=== PATIENT | female | born 1990 | race Caucasian/White ===

== ENCOUNTER 2021-06-17 15:56 | Emergency (ER) | payer MEDICAID, SELFPAY ==
[2021-06-17 16:07] VITALS: PULSE 100; RESP 20; TEMP 37.4; O2SAT 99; BMI 30.1
--- NOTE | 2021-06-17 16:17 | ECG_ITS ---
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 Measurements Intervals [place] Rate: 82 P: 51 [place]: 176 QRS: 81 QRSD: 93 T: 30 QT: 361 QTc: 424 Interpretive Statements SINUS RHYTHM Compared to ECG 06/17/2021 16:17:17 Sinus tachycardia no longer present Electronically Signed On 06-18-2021 17:00:34 CDT by Arun Skinner M.D. [id number]
--- NOTE | 2021-06-17 16:17 | XRR_ITS ---
PROCEDURE INFORMATION: Exam: XR Chest Exam date and time: 06/17/2021 4:18 PM Age: 31 years old Clinical indication: Pain; Angina pectoris; Additional info: Chest pain constant 4 TECHNIQUE: Imaging protocol: XR of the chest. Views: 2 views. COMPARISON: No relevant prior studies available. FINDINGS: Lungs: Unremarkable. No consolidation. Pleural spaces: Unremarkable. No pleural effusion. No pneumothorax. Heart/Mediastinum: Unremarkable. No cardiomegaly. Bones/joints: Unremarkable. XR/XR chest 2V* 36091 IMPRESSION: No acute findings.
[2021-06-17 17:42] VITALS: BP 198/104; PULSE 92; RESP 24; O2SAT 94
[2021-06-17 17:42] LABS: Basophils # 0.1 10^3/uL (0.0-0.1); Basophils % 0.6 %; Eosinophils # 0.1 10^3/uL (0.0-0.8); Eosinophils % 1.2 %; Hematocrit 45.2 % (37.0-47.0); Hemoglobin 13.9 g/dL (11.5-15.3); Lymphocytes # 1.8 10^3/uL (0.8-4.8); Lymphocytes % 17.5 %; Mean Corpuscular HGB Conc 30.8 g/dL (30.0-36.0); Mean Corpuscular Hemoglobin 25.9 pg (28.0-34.0); Mean Corpuscular Volume 84.2 fl (81-99); Mean Platelet Volume 10.3 fL (7.4-10.4); Monocytes # 0.6 10^3/uL (0.2-0.9); Monocytes % 5.6 %; Neutrophils # 7.56 10^3/uL (1.8-7.7); Neutrophils % 74.8 %; Nucleated Red Blood Cells % 0 %; Platelet Count 297 10^3/cmm (130-400); Red Blood Count 5.37 10^6/uL (4.1-5.3); Red Cell Distribution Width 15.4 % (12.1-15.1); White Blood Count 10.1 10^3/uL (4.0-10.0)
[2021-06-17 18:01] LABS: Blood Urea Nitrogen 9 mg/dL (6-20); Calcium 9.6 mg/dL (8.5-10.5); Carbon Dioxide 24 mmol/L (22-29); Chloride 102 mmol/L (98-107); Glomerular Filtration Rate 115.1 mL/min (90-130); Glucose 101 mg/dL (65-115); Osmolality Calculated 285 mOsm/kg (285-295); Sodium 138 mmol/L (136-145)
[2021-06-17 18:02] LABS: Troponin(5th) Baseline 6 ng/L (0-10)
--- NOTE | 2021-06-17 18:06 | ED_ITS ---
HPI - Chest Pain General: Chief Complaint: Chest Pain Stated Complaint: Chest Pain Time Seen by Provider: 06/17/21 16:59 Source: patient Mode of arrival: ambulatory Limitations: no limitations History of Present Illness: 31-year-old female states that she is playing video games today at 2 PM states she started having some chest pain as a pressure type pain in the left upper chest with some dyspnea as well. States that she started becoming quite anxious with this pain and got worked up and the pain worsened she states she has been trying to calm down she still does appear anxious here and is tearful but states her pain is improved to 2 out of 10 currently no history of any heart disease no history of blood clots or any respiratory issues in the past. Associated symptoms: Reports dyspnea; Deny abdominal pain, fever(s), nausea or vomiting Review of Systems Const: Denies: fever(s), chills, body aches or change in appetite Eyes: Denies: blurry vision or eye discomfort ENMT: Denies: throat pain or dental pain Card: Reports: chest pain Resp: Reports: dyspnea GI: Denies: abdominal pain, nausea, vomiting or diarrhea : Denies: dysuria Musc: Denies: neck pain or back pain Skin/Breast: Denies: rash Neuro: Denies: headache(s) Psych: Denies: depression Ariel/Lymph: Denies: easy bruising All/Imm: Denies: urticaria Physical Exam Const: COMMON NORMALS: no acute distress, patient oriented x3 and healthy appearing GENERAL APPEARANCE: anxious HENMT: COMMON NORMALS: normocephalic and atraumatic HEAD & SCALP: normocephalic and atraumatic Eye: COMMON NORMALS: Equal, round and reactive pupils present and EOMs intact bilaterally PUPIL: Yes Equal, round and reactive pupils present Neck/C-Spine: COMMON NORMALS: full ROM and supple Chest: COMMONS NORMALS: normal inspection of the chest and normal palpation of entire chest wall Resp: COMMON NORMALS: normal respiratory effort, No retractions, No use of accessory muscles and clear to auscultation bilaterally AUSCULTATION: clear to auscultation bilaterally Cardio: COMMON NORMALS: regular rate, regular rhythm and No murmurs present (Cardio) RATE: regular rate RHYTHM: regular rhythm GI: COMMON NORMALS: Normal to inspection, nondistended, normoactive bowel sounds present, Soft to palpation, non-tender and no masses PALPATION: Yes Soft to palpation Extremity: COMMON NORMALS: normal to inspection and full ROM Neuro: COMMON NORMALS: patient oriented x3, moves all extremities and no focal motor deficits Psych: COMMON NORMALS: mental status grossly normal, Normal thought process present and cooperative THOUGHT PROCESS: Normal thought process present Skin: COMMON NORMALS: no rashes or lesions noted and no wounds GENERAL SKIN EXAM: no rashes or lesions noted Course Vital Signs: Vital signs: Vital Signs Temperature 99.3 F 06/17/21 16:07 Pulse Rate 85 06/17/21 19:12 Respiratory Rate 24 H 06/17/21 17:42 Blood Pressure 124/86 06/17/21 19:12 Pulse Oximetry 100 06/17/21 19:12 MDM - Chest Pain Medical Decision Making Patient presents for chest pain atypical in nature she is young healthy with a heart score of 0 D-dimer is negative no signs of pulm embolism both troponins are normal no signs of acute coronary syndrome she was hypertensive here could be due to some anxiety we will write her metoprolol for home and she is to follow her blood pressure at home and follow-up with her PCP she understands agrees to plan. Lab Data : 06/17/21 17:30 06/17/21 17:30 Radiology Impressions Chest X-Ray 06/17/21 16:17 IMPRESSION: No acute findings. Laboratory Results WBC 10.1 10^3/uL (4.0-10.0) H 06/17/21 17:30 RBC 5.37 10^6/uL (4.1-5.3) H 06/17/21 17:30 Hgb 13.9 g/dL (11.5-15.3) 06/17/21 17:30 Hct 45.2 % (37.0-47.0) 06/17/21 17:30 MCV 84.2 fl (81-99) 06/17/21 17:30 MCH 25.9 pg (28.0-34.0) L 06/17/21 17:30 MCHC 30.8 g/dL (30.0-36.0) 06/17/21 17:30 RDW 15.4 % (12.1-15.1) H 06/17/21 17:30 Plt Count 297 10^3/cmm (130-400) 06/17/21 17:30 MPV 10.3 fL (7.4-10.4) 06/17/21 17:30 Neut % (Auto) 74.8 % 06/17/21 17:30 Lymph % (Auto) 17.5 % 06/17/21 17:30 Alexander % (Auto) 5.6 % 06/17/21 17:30 Eos % (Auto) 1.2 % 06/17/21 17:30 Baso % (Auto) 0.6 % 06/17/21 17:30 Neut # (Auto) 7.56 10^3/uL (1.8-7.7) 06/17/21 17: Lymph # (Auto) 1.8 10^3/uL (0.8-4.8) 06/17/21 17:30 Alexander # (Auto) 0.6 10^3/uL (0.2-0.9) 06/17/21 17: Eos # (Auto) 0.1 10^3/uL (0.0-0.8) 06/17/21 17: Baso # (Auto) 0.1 10^3/uL (0.0-0.1) 06/17/21 17: Nucleated RBC % (auto) 0 % 06/17/21 17: Nucleated RBCs # 0.0 /100WBC 06/17/21 17:30 D-Dimer 0.29 ug/mIFEU (0-0.59) 06/17/21 17:30 Sodium 138 mmol/L (136-145) 06/17/21 17:30 Potassium 4.5 mmol/L (3.5-5.1) 06/17/21 17: Chloride 102 mmol/L (98-107) 06/17/21 17: Carbon Dioxide 24 mmol/L (22-29) 06/17/21 17:30 Anion Gap 16.5 (5-19) 06/17/21 17:30 BUN 9 mg/dL (6-20) 06/17/21 17:30 Creatinine 0.6 mg/dL (0.5-0.9) 06/17/21 17:30 GFR Calculation 115.1 mL/min (90-130) 06/17/21 17:30 Glucose 101 mg/dL (65-115) 04/27/22 17:30 Calculated Osmolality 285 mOsm/kg (285-295) 06/17/21 17:30 Calcium 9.6 mg/dL (8.5-10.5) 06/17/21 17:30 Troponin T Baseline 6 ng/L (0-10) 06/17/21 17:30 Troponin T 120 Minute 6.00 ng/L (0-10) 06/17/21 18:16 Delta Troponin T 0 ABS# (0-10) 06/17/21 18:16 EKG Data EKG 1: I personally reviewed and interpreted this EKG as follows: EKG interpretation date: 06/17/21 EKG interpretation time: 16:17 Interpretation: sinus tach hr [address] or t wave abnormalities qrs 86 qtc 394 EKG 2: I personally reviewed and interpreted this EKG as follows: EKG interpretation date: 06/17/21 EKG interpretation time: 18:23 Interpretation: nsr hr [address] or t wave abnormalities qrs 93 qtc 400 Discharge Plan Discharge Patient Disposition: Home Clinical Impression: Chest pain Condition: Stable Prescriptions: New metoprolol succinate 25 mg tablet extended release 24 hr 25 mg PO DAILY Qty: 30 0RF Discharge Orders: Discharge ED (Routine); Ordered 06/17/21 Ordered By: Abhi Duran Referrals: Harjinder Ambrocio MD [Primary Care Provider] - Discharge Diet: Advance as tolerated Discharge Activity: Resume usual activity Patient Instructions: Chest Pain (ED), Hypertension (ED) Coding Level of Care Code ED Commercial Artist Lettering for Chg Fwd Exam Comprehensive
--- NOTE | 2021-06-17 18:17 | ECG_ITS ---
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 Measurements Intervals [place] Rate: 104 P: 43 [place]: 177 QRS: 79 QRSD: 86 T: 14 QT: 334 QTc: 440 Interpretive Statements SINUS TACHYCARDIA ABNORMAL RHYTHM ECG No previous ECG available for comparison Electronically Signed On 06-17-2021 17:06:07 CDT by Jaiden Llamas M.D. [id number]
[2021-06-17] MEDS: labetalol 5 mg/mL SDV 20mL 10 MG IVP (18:21)
[2021-06-17 18:26] LABS: Anion Gap 16.5 (5-19); Potassium 4.5 mmol/L (3.5-5.1)
[2021-06-17 18:52] LABS: Troponin 5 2HR Delta 0 ABS# (0-10)
[2021-06-17 18:54] LABS: D Dimer 0.29 ug/mIFEU (0-0.59)
[2021-06-17 19:12] VITALS: BP 124/86; PULSE 85; O2SAT 100
== END 2021-06-17 19:15 | disposition home or self-care (01) ==
PROVIDERS: Emergency Medicine; Emergency Provider Emergency Medicine; PCP Family Medicine
DX: R07.9 Chest pain, unspecified (principal)
CPT/HCPCS: 71046; 80048; 84484; 85025; 85378; 93005; 96374; 99284; J3490

== ENCOUNTER 2021-10-11 13:18 | Emergency (ER) | payer MEDICAID, SELFPAY ==
[2021-10-11 13:34] VITALS: BP 156/89; PULSE 81; RESP 16; TEMP 36.6; O2SAT 98; BMI 44.6
[2021-10-11 13:47] VITALS: BP 157/91; PULSE 81; RESP 18; O2SAT 98
--- NOTE | 2021-10-11 14:12 | W.ED.GENADLT ---
HPI - General Adult General: Chief complaint: General Medical Stated complaint: High Blood Pressure Time Seen by Provider: 10/11/21 13:26 History of Present Illness: 31-year-old female presenting today with transient chest pain and anxiety. Patient notes that she has been extremely anxious for several weeks. She has been seen by her primary care doctor for the same. She notes earlier today she started to have difficulty breathing, chest pain, numbness in her hands, numbness around her lips. As well as elevated blood pressure. The symptoms are all resolved. She notes this has been happening to her intermittently. She notes a significant increase in stress. Was recently started on an antidepressant. Has not spoken to social service worker or counselor at this time. Review of Systems General: Reports: 10 or more systems reviewed and unremarkable except in HPI and below Physical Exam Const: COMMON NORMALS: no acute distress, patient oriented x3 and alert GENERAL APPEARANCE: cooperative ORIENTATION/CONSCIOUSNESS: Yes awake, Yes oriented to person, Yes oriented to place and Yes oriented to time HENMT: COMMON NORMALS: normocephalic, atraumatic, external ears normal, Normal external nose present and moist oral mucous membranes HEAD & SCALP: normal to inspection, normocephalic and atraumatic NOSE: Normal external nose present GENERAL EAR: hearing grossly impaired EXTERNAL EAR: Yes external ears normal Eye: COMMON NORMALS: Equal, round and reactive pupils present, EOMs intact bilaterally, conjunctivae normal and no scleral icterus GENERAL EYE: appearance normal, both eyes and all related structures EYELID: eyelids normal CONJUNCTIVA: Yes conjunctivae normal SCLERA: sclerae normal PUPIL: Yes Equal, round and reactive pupils present Neck/C-Spine: COMMON NORMALS: full ROM, supple and no JVD GENERAL: Yes normal visual inspection Lymph: LYMPHATIC: no lymphadenopathy noted and no lymphedema noted Chest: COMMONS NORMALS: normal inspection of the chest Resp: COMMON NORMALS: normal respiratory effort, No retractions and No use of accessory muscles Cardio: COMMON NORMALS: no JVD, regular rate and regular rhythm RATE: regular rate RHYTHM: regular rhythm GI: COMMON NORMALS: Normal to inspection, nondistended, normoactive bowel sounds present : COMMON NORMALS: Yes no CVA tenderness BLADDER/KIDNEY EXAM: Yes no CVA tenderness Back/Pelvis: COMMON NORMALS: no CVA tenderness and thoracic and lumbar spine normal to inspection Extremity: COMMON NORMALS: normal to inspection, full ROM and capillary refill normal GENERAL: Yes normal exam except as noted Neuro: COMMON NORMALS: patient oriented x3, CN's II-XII intact bilaterally, moves all extremities, no focal motor deficits, no sensory deficits noted and gait normal SENSORIUM/ORIENTATION: Yes alert, Yes oriented to person, Yes oriented to place and Yes oriented to time Psych: COMMON NORMALS: mental status grossly normal, Normal thought process present, cooperative and normal affect THOUGHT PROCESS: Normal thought process present Skin: COMMON NORMALS: no rashes or lesions noted and no wounds GENERAL SKIN EXAM: no rashes or lesions noted Course Vital Signs: Vital signs: Vital Signs Temperature 97.9 F 10/11/21 13:34 Pulse Rate 81 10/11/21 13:47 Respiratory Rate 18 10/11/21 13:47 Blood Pressure 157/91 10/11/21 13:47 Pulse Oximetry 98 10/11/21 13:47 Oxygen Delivery Me thod 10/11/21 13:47 MDM - General Adult Medical Decision Making 31-year-old female presenting today with acute stress. Patient with mildly elevated blood pressure. Vitals otherwise within normal limits. Patient noting increasing anxiety and stress. Recommended she speak to a social service worker or counselor. Patient verbalized understanding. Patient is already taking antidepressant. Also having significant dietary modifications. Extensive discussions had about modifying diet. Modifying risk factors for diabetes. Patient was given strict return precautions and recommended routine outpatient follow-up. Discharge Plan Discharge Patient Disposition: Home Clinical Impression: Acute stress reaction Condition: Stable Prescriptions: No Action metoprolol succinate 25 mg tablet extended release 24 hr 25 mg PO DAILY Qty: 30 0RF Discharge Orders: Discharge ED (Routine); Ordered 10/11/21 Ordered By: Khris Zapata Referrals: Harjinder Ambrocio MD [Primary Care Provider] - Patient Instructions: Stress (ED) Coding Level of Care Code ED Director Of Music for Elisabeth Andrade
[2021-10-11 14:26] VITALS: BP 148/81; PULSE 88; O2SAT 99
== END 2021-10-11 14:27 | disposition home or self-care (01) ==
PROVIDERS: Emergency Provider Emergency Medicine; PCP Family Medicine
DX: F43.0 Acute stress reaction (principal)
CPT/HCPCS: 99283